=== PATIENT | female | born 1950 | race Caucasian/White ===

== ENCOUNTER 2021-07-26 11:14 | Outpatient (CLI) | payer MEDICARE, BC ==
[2021-07-26 11:58] LABS: MEAN PLATELET VOLUME 8.5 FL (7.4-10.4); RED CELL DISTRIBUTION WIDTH 15.8 % (11.5-14.5); WHITE BLOOD COUNT 4.6 X10'3 (4.5-11.0)
[2021-07-26 12:00] LABS: HEMATOCRIT 42.5 % (35.0-45.0); HEMOGLOBIN 13.9 g/dl (12.0-16.0); MEAN CORPUSCULAR HEMOGLOBIN 28.3 PG (27.0-31.0); MEAN CORPUSCULAR HGB CONC 32.6 g/dL (33.0-36.5); MEAN CORPUSCULAR VOLUME 86.7 FL (78-98); PLATELET COUNT 319 X10'3 (140-440)
[2021-07-26 12:03] LABS: CLARITY,URINE CLOUDY (Clear); COLOR,URINE YELLOW (Yellow); GLUCOSE, URINE NEGATIVE (Neg); KETONES,URINE TRACE mg/dl (Neg); LEUKOCYTE ESTERASE ,URINE NEGATIVE (Neg); NITRITES, URINE POSITIVE (Neg); OCCULT BLOOD,URINE TRACE-INTACT (Neg); PH,URINE 6.5 (4.8-8.0); PROTEIN,URINE NEGATIVE (Neg); UROBILINOGEN,URINE 0.2 E.U/dL (0.2-1.0)
[2021-07-26 12:07] LABS: HEMOGLOBIN A1C 5.7 % (4.5-6.2)
[2021-07-26 12:16] LABS: UA COLLECTION TYPE CLN CATCH MIDSTREAM
[2021-07-26 12:21] LABS: ALANINE AMINOTRANSFERASE 23 U/L (12-78); ALBUMIN 3.8 G/DL (3.4-5.0); ALBUMIN/GLOBULIN RATIO 0.9 (1.1-1.5); ALKALINE PHOSPHATASE 95 IU/L (46-116); ANION GAP 11 (8-16); ASPARTATE AMINO TRANSFERASE 19 U/L (10-37); BILIRUBIN,TOTAL 0.8 MG/DL (0.1-1.0); BLOOD UREA NITROGEN 9 MG/DL (7-18); BUN/CREATININE RATIO 12.3 (6.6-38.0); CHLORIDE 100 MMOL/L (99-107); CHOL/HDL RATIO 2.5 (0.00-4.99); CHOLESTEROL 237 MG/DL (0-200); CREATININE 0.73 MG/DL (0.40-0.90); GLUCOSE 92 MG/DL (70-104); HDL CHOLESTEROL 95 MG/DL (35-60); LDL CHOLESTEROL 128 MG/DL (50-100); SODIUM 139 MMOL/L (135-145); TOTAL CARBON DIOXIDE 27.8 MMOL/L (24-32); TOTAL PROTEIN 7.9 G/DL (6.4-8.2); TRIGLYCERIDES 60 MG/DL (20-135); eGFR 79 ML/MIN
[2021-07-26 12:23] LABS: BACTERIA,URINE 4+ /HPF (Neg); MUCUS STRANDS FEW /LPF (Neg); RBC,URINE NONE SEEN /HPF (0-2); SQUAMOUS EPITHELIAL CELL,UR MANY /LPF (FEW)
[2021-07-26 12:55] LABS: GIANT PLATELET FEW; LARGE PLATELETS FEW; PLATELET ESTIMATE NORMAL; TOTAL CELLS COUNTED 100
== END 2021-07-26 23:59 | disposition home or self-care (01) ==
LOC: LAB 11:14
PROVIDERS: ATTEND Internal Medicine
DX: I10 Essential (primary) hypertension (principal); E78.5 Hyperlipidemia, unspecified; N95.0 Postmenopausal bleeding; E03.9 Hypothyroidism, unspecified; R73.01 Impaired fasting glucose
CPT/HCPCS: 36415; 80053; 80061; 81001; 83036; 84443; 85007; 85025; 85610

== ENCOUNTER 2023-11-23 18:23 | Inpatient (IN) | payer MEDICARE, BC ==
[~2023-11-23] VITALS: Ht 165.1 cm; Wt 92.0 kg
[2023-11-23] MEDS: traMADol 50MG tablet PO ONE (20:24)
[2023-11-23] MEDS ORDERED: magnesium hydroxide 30ml (MOM) UD suspension PO PRN (22:25)
[2023-11-23] MEDS ORDERED: HYDROcodone/acetaminophen 5mg/325mg tablet PO PRN (22:25)
[2023-11-23] MEDS ORDERED: magnesium sulf-water 2g/50mL 50 ML IV PRN (22:25)
[2023-11-23] MEDS ORDERED: magnesium sulf-water 4G/100mL 100 ML IV PRN (22:25)
[2023-11-23] MEDS ORDERED: morphine 2 MG/ML inj. syringe IV PRN (22:25)
[2023-11-23] MEDS ORDERED: magnesium Cl slow-release 64mg tablet PO PRN (22:25)
[2023-11-23] MEDS ORDERED: acetaminophen 325mg tablet PO PRN (22:25)
[2023-11-23] MEDS: ipratropium/albuterol 3ml nebule NEB SCH (22:25)
[2023-11-23 22:48] LABS: BASOPHILS # (AUTO) 0.1 X10'3 (0-0.2); BASOPHILS % (AUTO) 0.9 % (0-1); EOSINOPHILS # (AUTO) 0.2 X10'3 (0-0.9); EOSINOPHILS % (AUTO) 3.6 % (0-6); HEMATOCRIT 36.8 % (35.0-45.0); HEMOGLOBIN 11.9 g/dl (12.0-16.0); LYMPHOCYTES # (AUTO) 1.2 X10'3 (1.1-4.8); LYMPHOCYTES % (AUTO) 19.5 % (21-51); MEAN CORPUSCULAR HEMOGLOBIN 27.3 PG (27.0-31.0); MEAN CORPUSCULAR HGB CONC 32.2 g/dL (33.0-36.5); MEAN CORPUSCULAR VOLUME 84.7 FL (78-98); MEAN PLATELET VOLUME 7.7 FL (7.4-10.4); MONOCYTES # (AUTO) 0.6 X10'3 (0-0.9); NEUTROPHILS # (AUTO) 4.2 X10'3 (1.8-7.7); PLATELET COUNT 324 X10'3 (140-440); RED BLOOD COUNT 4.35 X10'6 (4.20-5.60); RED CELL DISTRIBUTION WIDTH 17.2 % (11.5-14.5); WHITE BLOOD COUNT 6.3 X10'3 (4.5-11.0)
[2023-11-23 22:59] LABS: ALANINE AMINOTRANSFERASE 17 U/L (12-78); ALBUMIN 3.2 G/DL (3.4-5.0); ALBUMIN/GLOBULIN RATIO 0.8 (1.1-1.5); ALKALINE PHOSPHATASE 83 IU/L (46-116); ANION GAP 6 (8-16); ASPARTATE AMINO TRANSFERASE 13 U/L (10-37); BILIRUBIN,TOTAL 0.7 MG/DL (0.1-1.0); BLOOD UREA NITROGEN 12 MG/DL (7-18); BUN/CREATININE RATIO 19.4 (10.0-20.0); CALCIUM 9.3 MG/DL (8.5-10.1); CHLORIDE 100 MMOL/L (99-107); CREATININE 0.62 MG/DL (0.40-0.90); GLUCOSE 99 MG/DL (70-104); SODIUM 138 MMOL/L (135-145); TOTAL CARBON DIOXIDE 31.8 MMOL/L (24-32); TOTAL PROTEIN 7.2 G/DL (6.4-8.2); eCRCL 74 ML/MIN; eGFR > 90 ML/MIN
[2023-11-23 23:11] LABS: POTASSIUM 2.9 MMOL/L (3.5-5.1)
[2023-11-24] VITALS (14 sets, daily range): BP systolic 95–124; BP diastolic 61–71; PULSE 61–94; RESP 16–20; TEMP 97.5–98.5; O2SAT 92–98
[2023-11-24] MEDS: ringers solution, lacted 1,000 ML IV SCH (00:01)
[2023-11-24] MEDS: potassium Cl 40MEQ/1/2NS 520ml 520 ML IV PRN (01:49)
[2023-11-24] MEDS: morphine 2 MG/ML inj. syringe IV PRN (02:31)
[2023-11-24 03:52] LABS: BASOPHILS % (AUTO) 0.3 % (0-1); EOSINOPHILS # (AUTO) 0.2 X10'3 (0-0.9); HEMATOCRIT 37.2 % (35.0-45.0); HEMOGLOBIN 11.9 g/dl (12.0-16.0); LYMPHOCYTES # (AUTO) 1.3 X10'3 (1.1-4.8); MEAN CORPUSCULAR HEMOGLOBIN 27.3 PG (27.0-31.0); MEAN CORPUSCULAR VOLUME 85.1 FL (78-98); MEAN PLATELET VOLUME 8.3 FL (7.4-10.4); MONOCYTES # (AUTO) 0.6 X10'3 (0-0.9); MONOCYTES % (AUTO) 9.8 % (2-12); NEUTROPHILS # (AUTO) 3.9 X10'3 (1.8-7.7); NEUTROPHILS % (AUTO) 64.9 % (42-75); PLATELET COUNT 326 X10'3 (140-440); RED BLOOD COUNT 4.37 X10'6 (4.20-5.60); RED CELL DISTRIBUTION WIDTH 16.8 % (11.5-14.5)
[2023-11-24 04:13] LABS: ALBUMIN 3.1 G/DL (3.4-5.0); ANION GAP 8 (8-16); BLOOD UREA NITROGEN 11 MG/DL (7-18); BUN/CREATININE RATIO 18.6 (10.0-20.0); CHLORIDE 99 MMOL/L (99-107); CREATININE 0.59 MG/DL (0.40-0.90); GLUCOSE 97 MG/DL (70-104); POTASSIUM 3.2 MMOL/L (3.5-5.1); SODIUM 137 MMOL/L (135-145); THYROID STIMULATING HORMONE 16.62 ulU/ml (0.34-4.50); TOTAL CARBON DIOXIDE 30.4 MMOL/L (24-32); eCRCL 78 ML/MIN; eGFR > 90 ML/MIN
[2023-11-24] MEDS: K and/or MAG REPLACEMENT MC SCH (04:19)
[2023-11-24 04:34] LABS: BILIRUBIN,URINE NEGATIVE (Neg); CLARITY,URINE CLOUDY (Clear); COLOR,URINE YELLOW (Yellow); GLUCOSE, URINE NEGATIVE (Neg); KETONES,URINE NEGATIVE (Neg); LEUKOCYTE ESTERASE ,URINE TRACE (Neg); NITRITES, URINE NEGATIVE (Neg); OCCULT BLOOD,URINE TRACE-INTACT (Neg); PROTEIN,URINE 30 mg/dl (Neg)
[2023-11-24 04:37] LABS: UA COLLECTION TYPE FOLEY CATH
[2023-11-24 04:44] LABS: BACTERIA,URINE 4+ /HPF (Neg); MUCUS STRANDS MODERATE /LPF (Neg); SQUAMOUS EPITHELIAL CELL,UR MODERATE /LPF (FEW); TRANSITIONAL EPI CELLS,URINE FEW /HPF
[2023-11-24 04:45] LABS: WBC CLUMPS,URINE FEW /HPF (NEGATIVE)
[2023-11-24] MEDS ORDERED: ESCI10TA PO (04:49)
[2023-11-24] MEDS ORDERED: FOSI20TA97 PO (04:51)
[2023-11-24] MEDS ORDERED: LEVO50TA PO (04:54)
[2023-11-24] MEDS ORDERED: ALB0.5UD NEB (04:54)
[2023-11-24] MEDS ORDERED: TRAM50TA2 PO (04:56)
[2023-11-24] MEDS: heparin, porcine 5000 units/ml vial SQ SCH (08:00)
[2023-11-24] MEDS: docusate sod 100mg capsule PO SCH (08:02)
[2023-11-24] MEDS: calcium carbonate 500mg tablet PO SCH (08:02)
[2023-11-24] MEDS: cholecalciferol (vitamin D3) 1,000 unit (25mcg) tablet PO SCH (08:02)
[2023-11-24] MEDS: HYDROcodone/acetaminophen 10/325mg tab PO PRN (08:02)
[2023-11-24] MEDS: potassium Cl 20 mEq SR tablet PO PRN ×2 (14:22→20:30)
[2023-11-24] MEDS: nystatin 15 GM powder TP SCH (20:28)
[2023-11-25] VITALS (28 sets, daily range): BP systolic 70–137; BP diastolic 49–85; PULSE 82–106; RESP 14–21; TEMP 97–98.5; O2SAT 88–99
[2023-11-25 06:02] LABS: BASOPHILS % (AUTO) 0.5 % (0-1); EOSINOPHILS # (AUTO) 0.2 X10'3 (0-0.9); EOSINOPHILS % (AUTO) 4.2 % (0-6); HEMATOCRIT 37.3 % (35.0-45.0); HEMOGLOBIN 11.9 g/dl (12.0-16.0); LYMPHOCYTES % (AUTO) 17.5 % (21-51); MEAN CORPUSCULAR HEMOGLOBIN 27.3 PG (27.0-31.0); MEAN CORPUSCULAR HGB CONC 31.8 g/dL (33.0-36.5); MEAN CORPUSCULAR VOLUME 85.6 FL (78-98); MEAN PLATELET VOLUME 8.2 FL (7.4-10.4); MONOCYTES # (AUTO) 0.4 X10'3 (0-0.9); NEUTROPHILS # (AUTO) 3.8 X10'3 (1.8-7.7); NEUTROPHILS % (AUTO) 69.8 % (42-75); PLATELET COUNT 318 X10'3 (140-440); RED BLOOD COUNT 4.36 X10'6 (4.20-5.60); RED CELL DISTRIBUTION WIDTH 16.8 % (11.5-14.5); WHITE BLOOD COUNT 5.5 X10'3 (4.5-11.0)
[2023-11-25 06:10] LABS: ALBUMIN 2.8 G/DL (3.4-5.0); ANION GAP 3 (8-16); BLOOD UREA NITROGEN 9 MG/DL (7-18); BUN/CREATININE RATIO 15.8 (10.0-20.0); CALCIUM 9.4 MG/DL (8.5-10.1); CHLORIDE 102 MMOL/L (99-107); CREATININE 0.57 MG/DL (0.40-0.90); GLUCOSE 95 MG/DL (70-104); SODIUM 137 MMOL/L (135-145); TOTAL CARBON DIOXIDE 32.5 MMOL/L (24-32); eCRCL 80 ML/MIN; eGFR > 90 ML/MIN
[2023-11-25 06:14] LABS: APTT 28 SECONDS (22-32); PROTHROMBIN TIME 10.7 SECONDS (9.0-12.0)
[2023-11-25] MEDS ORDERED: levoTHYROXINE 25mcg tablet PO SCH (08:00)
[2023-11-25] MEDS: ESCITALOPRAM 10 mg tablet 10 MG TABLET PO SCH (09:21)
[2023-11-25] MEDS: levoTHYROXINE 100mcg tablet PO SCH (09:22)
[2023-11-25] MEDS: vancomycin/NS 1 GM ADD-VANTAGE 250 ML IV ONE (11:00)
[2023-11-25] MEDS: ceFAZolin/D5W- 1GM premix 50 ML IV ONE (11:00)
[2023-11-25] MEDS: ROPIVAcaine 0.5% (5mg/ml) 30ml vial ONE (11:32)
[2023-11-25] MEDS ORDERED: fentaNYL/PF 50MCG/1 ML 2ML syringe ONE ×3 (11:35→13:10)
[2023-11-25] MEDS: tranexamic acid 100mg/ml inj. ONE ×2 (11:40→13:16)
[2023-11-25] MEDS: vancomycin 1,000mg inj ONE ×2 (11:41→12:53)
[2023-11-25] MEDS ORDERED: sevoflurane 250ml liquid IH ONE (11:50)
[2023-11-25] MEDS: BUPIVACAINE/MELOXICAM 14 ML VIAL IL ONE ×2 (12:15→12:53)
[2023-11-25] MEDS ORDERED: ondansetron/PF 4mg/2ml inj IV PRN (14:20)
[2023-11-25] MEDS ORDERED: enalaprilat dihydrate 2.5mg/2ml vial IV PRN (14:20)
[2023-11-25] MEDS ORDERED: meperidine/PF 25mg/ml syringe IV PRN ×2 (14:20)
[2023-11-25] MEDS ORDERED: morphine 2 MG/ML inj. syringe IV PRN (14:20)
[2023-11-25] MEDS ORDERED: morphine 4 MG/ML inj SYRINge IV PRN (14:20)
[2023-11-25] MEDS ORDERED: labetalol 20mg/4ml (5mg/ml) syringe IV PRN (14:20)
[2023-11-25] MEDS: meperidine/PF 25mg/ml syringe IV PRN (15:09)
[2023-11-25] MEDS: ringers solution, lacted 1,000 ML IV SCH (15:16)
[2023-11-25] MEDS: proCHLORperazine 10 MG/2 ml inj IV PRN (20:40)
[2023-11-26] VITALS (14 sets, daily range): BP systolic 101–108; BP diastolic 56–61; PULSE 80–106; RESP 16–18; TEMP 97.1–98.1; O2SAT 87–96
[2023-11-26 06:17] LABS: BASOPHILS % (AUTO) 0.1 % (0-1); EOSINOPHILS % (AUTO) 0 % (0-6); HEMATOCRIT 33.8 % (35.0-45.0); HEMOGLOBIN 10.8 g/dl (12.0-16.0); LYMPHOCYTES # (AUTO) 0.4 X10'3 (1.1-4.8); MEAN CORPUSCULAR HEMOGLOBIN 27.5 PG (27.0-31.0); MEAN PLATELET VOLUME 8.9 FL (7.4-10.4); MONOCYTES # (AUTO) 0.6 X10'3 (0-0.9); MONOCYTES % (AUTO) 7.8 % (2-12); NEUTROPHILS % (AUTO) 87.1 % (42-75); PLATELET COUNT 304 X10'3 (140-440); RED BLOOD COUNT 3.93 X10'6 (4.20-5.60); RED CELL DISTRIBUTION WIDTH 17.3 % (11.5-14.5)
[2023-11-26 06:26] LABS: ALBUMIN 2.6 G/DL (3.4-5.0); ANION GAP 2 (8-16); BLOOD UREA NITROGEN 10 MG/DL (7-18); BUN/CREATININE RATIO 15.6 (10.0-20.0); CALCIUM 9.5 MG/DL (8.5-10.1); CHLORIDE 100 MMOL/L (99-107); CREATININE 0.64 MG/DL (0.40-0.90); GLUCOSE 119 MG/DL (70-104); SODIUM 138 MMOL/L (135-145); TOTAL CARBON DIOXIDE 35.8 MMOL/L (24-32); eCRCL 72 ML/MIN; eGFR > 90 ML/MIN
[2023-11-26] MEDS: CefTRIAXone/D5W-Rocephin 1gm 50 ML IV SCH (10:01)
[2023-11-26] MEDS: normal saline 500ml IV soln 500 ML IV ONE (10:47)
[2023-11-26 11:15] LABS: ABG BASE EXCESS 6.7 mmol/L (-2.0-2.0); ABG HCO3 32.1 mmol/L (22.0-26.0); ABG OXYGEN SATURATION 92.1 % (94-97); ABG PCO2 (T) 48.1 mmHg (32.0-45.0); ABG PH (T) 7.439 (7.350-7.450); ABG PO2 (T) 60.3 mmHg (75.0-100.0); ALLEN'S TEST POSITIVE; FCOHb 0.8 % (0.0-3.9); FHHb 7.8 % (0.0-5.0); FLOW 4 L/min; FMetHb 0.3 % (0.0-1.5); FO2Hb 91.1 % (94-97); MODE NASAL CANNULA; PATIENT TEMPERATURE 36.2; TOTAL HEMOGLOBIN 11.1 G/dl (12.0-16.0)
[2023-11-26 12:35] LABS: D-DIMER 3.89 MG/L FEU (0-0.50)
[2023-11-26] MEDS: ondansetron/PF 4mg/2ml inj IV PRN (13:21)
[2023-11-26] MEDS ORDERED: iohexol 350MG/ML 100ml bottle IV ONE (19:06)
[2023-11-26] MEDS ORDERED: PERFLUTREN PROTEIN-A MICROSPHR (Optison) 0.22 MG/ML 3ML VIAL IV PRN (21:05)
[2023-11-26] MEDS ORDERED: heparin 10,000 units/1 ML INJ IV PRN (21:15)
[2023-11-26] MEDS ORDERED: heparin 10,000 units/1 ML INJ IV ONE (21:15)
[2023-11-26] MEDS: heparin 25,000 UNIT/250ml bag 250 ML IV PRN (21:56)
[2023-11-26] MEDS: MESSAGE TO NURSING IV ONE (22:03)
[2023-11-27] VITALS (12 sets, daily range): BP systolic 96–155; BP diastolic 56–69; PULSE 87–101; RESP 16–19; TEMP 97.2–98.3; O2SAT 94–95
[2023-11-27 06:00] LABS: BASOPHILS % (AUTO) 0.4 % (0-1); EOSINOPHILS # (AUTO) 0.2 X10'3 (0-0.9); EOSINOPHILS % (AUTO) 3.1 % (0-6); HEMATOCRIT 29.4 % (35.0-45.0); HEMOGLOBIN 9.5 g/dl (12.0-16.0); LYMPHOCYTES # (AUTO) 1.4 X10'3 (1.1-4.8); LYMPHOCYTES % (AUTO) 22.2 % (21-51); MEAN CORPUSCULAR HEMOGLOBIN 27.8 PG (27.0-31.0); MEAN CORPUSCULAR HGB CONC 32.4 g/dL (33.0-36.5); MEAN CORPUSCULAR VOLUME 85.9 FL (78-98); MEAN PLATELET VOLUME 8.4 FL (7.4-10.4); MONOCYTES # (AUTO) 0.7 X10'3 (0-0.9); MONOCYTES % (AUTO) 10.2 % (2-12); NEUTROPHILS # (AUTO) 4.1 X10'3 (1.8-7.7); NEUTROPHILS % (AUTO) 64.1 % (42-75); PLATELET COUNT 298 X10'3 (140-440); RED BLOOD COUNT 3.42 X10'6 (4.20-5.60); RED CELL DISTRIBUTION WIDTH 17.6 % (11.5-14.5); WHITE BLOOD COUNT 6.4 X10'3 (4.5-11.0)
[2023-11-27 06:03] LABS: ALBUMIN 2.1 G/DL (3.4-5.0); ANION GAP 3 (8-16); BLOOD UREA NITROGEN 8 MG/DL (7-18); BUN/CREATININE RATIO 14.8 (10.0-20.0); CALCIUM 8.8 MG/DL (8.5-10.1); CHLORIDE 101 MMOL/L (99-107); CREATININE 0.54 MG/DL (0.40-0.90); GLUCOSE 90 MG/DL (70-104); POTASSIUM 3.9 MMOL/L (3.5-5.1); SODIUM 139 MMOL/L (135-145); TOTAL CARBON DIOXIDE 34.8 MMOL/L (24-32); eCRCL 85 ML/MIN; eGFR > 90 ML/MIN
[2023-11-27] MEDS ORDERED: magnesium sulf-water 2g/50mL 50 ML IV PRN (07:10)
[2023-11-27] MEDS ORDERED: potassium Cl 40MEQ/1/2NS 520ml 520 ML IV PRN (07:10)
[2023-11-27] MEDS ORDERED: magnesium sulf-water 4G/100mL 100 ML IV PRN (07:10)
[2023-11-27] MEDS ORDERED: potassium Cl 20 mEq SR tablet PO PRN ×2 (07:10)
[2023-11-27 07:39] LABS: MAGNESIUM 1.3 MG/DL (1.5-2.4)
[2023-11-27] MEDS: apixaban 5mg tablet PO SCH (10:59)
[2023-11-27] MEDS: magnesium Cl slow-release 64mg tablet PO PRN (11:00)
== END 2023-11-27 17:55 | DRG 521 ==
LOC: ER 18:23 → ED HOLD 22:30 → SUR 3N 11-24 02:20 → PCU 3S 11-26 22:30
PROVIDERS: ADMIT Surgery Surgical Critical Care; ATTEND Internal Medicine
PROC: 0SRS0JA Replacement of Left Hip Joint, Femoral Surface with Synthetic Substitute, Uncemented, Open Approach (ICD-10-PCS; principal; 2023-11-25 11:50)
PROC: B32T1ZZ Computerized Tomography (CT Scan) of Left Pulmonary Artery using Low Osmolar Contrast (ICD-10-PCS; 2023-11-26)
PROC: B3201ZZ Computerized Tomography (CT Scan) of Thoracic Aorta using Low Osmolar Contrast (ICD-10-PCS; 2023-11-26)
PROC: B32S1ZZ Computerized Tomography (CT Scan) of Right Pulmonary Artery using Low Osmolar Contrast (ICD-10-PCS; 2023-11-26)
DX: S72.012A Unspecified intracapsular fracture of left femur, initial encounter for closed fracture (principal); I26.99 Other pulmonary embolism without acute cor pulmonale; N39.0 Urinary tract infection, site not specified; W18.39XA Other fall on same level, initial encounter; M81.0 Age-related osteoporosis without current pathological fracture; J45.909 Unspecified asthma, uncomplicated; E03.9 Hypothyroidism, unspecified; F32.A Depression, unspecified; E87.6 Hypokalemia; Y93.89 Activity, other specified; Y92.89 Other specified places as the place of occurrence of the external cause; Y99.8 Other external cause status; Z87.891 Personal history of nicotine dependence; Z90.710 Acquired absence of both cervix and uterus
CPT/HCPCS: 36415; 36600; 71045; 71275; 72170; 72192; 80048; 80053; 81001; 82803; 82948; 83735; 84132; 84443; 84484; 85018; 85025; 85379; 85610; 85730; 86885; 86900; 86901; 87077; 87081; 87088; 87186; 93005; 93970; 94640; 94760; 97110; 97116; 97162; 97530; 99285; A4215; A4615; A4618; A6154; A6213; A6258; A6446; A6449; A7000; C1776; G0378; J0690; J0696; J0780; J1100; J1644; J2175; J2270; J2371; J2405; J2704; J2710; J2795; J3010; J3370; J3480; J3490; J7040; J7120; Q9967